=== PATIENT | female | born 1950 | race African-American/Black ===

== ENCOUNTER 2021-11-13 09:07 | Outpatient (REF) | payer MEDICARE, OTHER, SELFPAY ==
[2021-11-13 09:38] LABS: MANUAL DIFF FLAG NO
[2021-11-13 09:46] LABS: Basophils Percent Auto 0.4 % (0-2); Eosinophils Absolute Auto 0.1 X10*3/uL (0.0-0.4); Eosinophils Percent Auto 1.6 % (0-4); Hematocrit 38.3 % (37.0-47.0); Hemoglobin 12.2 g/dl (12.0-16.0); Imm Gran Abs Auto 0.02 X10*3/uL (0.00-0.03); Imm Gran Pct Auto 0.3 % (0.0-0.4); Lymphocytes Absolute Auto 2.2 X10*3/uL (1.2-4.9); Lymphocytes Percent Auto 31.5 % (20-40); Mean Corpuscular HGB Conc 31.9 g/dl (31.0-35.0); Mean Corpuscular Hemoglobin 26.9 pg (27.0-33.0); Mean Corpuscular Volume 84.4 fL (80.0-98.0); Mean Platelet Volume 10.1 fL (9.4-12.3); Monocytes Absolute Auto 0.7 X10*3/uL (0.1-1.2); Monocytes Percent Auto 9.2 % (2-11); Platelet Count 312 X10*3/uL (160-400); Red Blood Count 4.54 X10*6/uL (4.20-5.50); Red Cell Distribution Width 15.1 % (11.0-16.0); White Blood Count 7.1 X10*3/uL (4.8-10.8)
[2021-11-13 10:21] LABS: Alanine Aminotransferase 26 U/L (0-31); Alkaline Phosphatase 90 U/L (39-117); Anion Gap 8 (12-20); Aspartate Amino Transferase 25 U/L (5-31); Bilirubin Total 0.4 mg/dL (0.0-1.0); Blood Urea Nitrogen 19 mg/dL (9-16); Calcium 9.8 mg/dL (8.4-10.2); Carbon Dioxide 30 mmol/L (22-29); Chloride 105 mmol/L (96-108); Cholesterol 186 mg/dL; Estimated Glomerular Filt Rate 50; Glucose Random 106 mg/dL (60-115); HDL Cholesterol 68 mg/dL; LDL Cholesterol Calculated 108 mg/dl; Potassium 4.3 mmol/L (3.3-5.1); Sodium 139 mmol/L (135-145); Total Protein 6.9 g/dL (6.5-8.0); Triglycerides 51 mg/dL
[2021-11-13 10:43] LABS: Thyroid Stimulating Hormone 0.62 uIU/mL (0.32-4.0)
== END 2021-11-13 09:08 | disposition home or self-care (01) ==
LOC: HO.LAB 09:07
PROVIDERS: PCP Internal Medicine; Visit Provider Internal Medicine
DX: F17.211 Nicotine dependence, cigarettes, in remission (principal); I10 Essential (primary) hypertension; J37.0 Chronic laryngitis; R05.9 Cough, unspecified; R09.82 Postnasal drip
CPT/HCPCS: 36415; 80053; 80061; 84443; 85025

== ENCOUNTER 2022-02-01 11:37 | Outpatient (REF) | payer MEDICARE, OTHER, SELFPAY ==
[2022-02-02 04:43] LABS: ~Hepatitis C Antibody Nonreactive (Nonreactive)
== END 2022-02-01 11:38 | disposition home or self-care (01) ==
LOC: HO.10HDL 11:37
PROVIDERS: Visit Provider Internal Medicine
DX: M62.831 Muscle spasm of calf (principal); F17.201 Nicotine dependence, unspecified, in remission
CPT/HCPCS: 36415; 86803

== ENCOUNTER 2022-11-25 13:51 | Outpatient (REF) | payer MEDICARE, OTHER, SELFPAY ==
[2022-11-25 14:20] LABS: MANUAL DIFF FLAG NO
[2022-11-25 15:55] LABS: Basophils Percent Auto 0.5 % (0-2); Eosinophils Absolute Auto 0.2 X10*3/uL (0.0-0.4); Eosinophils Percent Auto 2.9 % (0-4); Hematocrit 34.2 % (37.0-47.0); Hemoglobin 10.8 g/dl (12.0-16.0); Imm Gran Abs Auto 0.02 X10*3/uL (0.00-0.03); Imm Gran Pct Auto 0.3 % (0.0-0.4); Lymphocytes Absolute Auto 3.1 X10*3/uL (1.2-4.9); Lymphocytes Percent Auto 38.8 % (20-40); Mean Corpuscular HGB Conc 31.6 g/dl (31.0-35.0); Mean Corpuscular Hemoglobin 25.8 pg (27.0-33.0); Mean Corpuscular Volume 81.8 fL (80.0-98.0); Mean Platelet Volume 10.7 fL (9.4-12.3); Monocytes Absolute Auto 0.6 X10*3/uL (0.1-1.2); Neutrophils Percent Auto 49.5 % (45-73); Platelet Count 352 X10*3/uL (160-400); Red Blood Count 4.18 X10*6/uL (4.20-5.50); Red Cell Distribution Width 14.7 % (11.0-16.0)
[2022-11-25 16:34] LABS: Alanine Aminotransferase 17 U/L (0-31); Albumin Level 3.8 g/dL (3.5-5.0); Alkaline Phosphatase 72 U/L (39-117); Anion Gap 12 (12-20); Aspartate Amino Transferase 21 U/L (5-31); Bilirubin Total 0.5 mg/dL (0.0-1.0); Blood Urea Nitrogen 12 mg/dL (9-16); Calcium 9.1 mg/dL (8.4-10.2); Carbon Dioxide 25 mmol/L (22-29); Chloride 109 mmol/L (96-108); Cholesterol 182 mg/dL; Estimated Glomerular Filt Rate 53; Glucose Random 75 mg/dL (60-115); HDL Cholesterol 59 mg/dL; LDL Cholesterol Calculated 114 mg/dl; Potassium 4.1 mmol/L (3.3-5.1); Sodium 142 mmol/L (135-145); Total Protein 6.4 g/dL (6.5-8.0); Triglycerides 47 mg/dL
[2022-11-25 16:48] LABS: Vitamin D 25-OH Total 55.9 ng/mL (>30)
[2022-11-26 08:45] LABS: ~HepC Num1 0.15 S/CO (0.00-0.79); ~Hepatitis C Antibody Nonreactive (Nonreactive)
== END 2022-11-25 13:52 | disposition home or self-care (01) ==
LOC: HO.LAB 13:51
PROVIDERS: PCP Internal Medicine; Visit Provider Internal Medicine
DX: Z13.89 Encounter for screening for other disorder (principal)
CPT/HCPCS: 36415; 80053; 80061; 82306; 85025; 86803

== ENCOUNTER 2023-01-03 16:31 | Outpatient (REF) | payer MEDICARE, OTHER, SELFPAY ==
[2023-01-03 16:50] LABS: MANUAL DIFF FLAG NO
[2023-01-03 17:55] LABS: Basophils Absolute Auto 0.1 X10*3/uL (0.0-0.2); Basophils Percent Auto 0.7 % (0-2); Eosinophils Absolute Auto 0.2 X10*3/uL (0.0-0.4); Eosinophils Percent Auto 2.4 % (0-4); Hematocrit 36.7 % (37.0-47.0); Hemoglobin 11.4 g/dl (12.0-16.0); Imm Gran Abs Auto 0.01 X10*3/uL (0.00-0.03); Imm Gran Pct Auto 0.1 % (0.0-0.4); Lymphocytes Percent Auto 29.8 % (20-40); Mean Corpuscular HGB Conc 31.1 g/dl (31.0-35.0); Mean Corpuscular Hemoglobin 25.9 pg (27.0-33.0); Mean Corpuscular Volume 83.2 fL (80.0-98.0); Mean Platelet Volume 10.7 fL (9.4-12.3); Monocytes Absolute Auto 0.6 X10*3/uL (0.1-1.2); Monocytes Percent Auto 8.9 % (2-11); Neutrophils Absolute Auto 3.9 x10*3/uL (2.0-8.3); Neutrophils Percent Auto 58.1 % (45-73); Platelet Count 405 X10*3/uL (160-400); Red Blood Count 4.41 X10*6/uL (4.20-5.50); Red Cell Distribution Width 15.1 % (11.0-16.0); White Blood Count 6.7 X10*3/uL (4.8-10.8)
[2023-01-03 18:30] LABS: Alanine Aminotransferase 19 U/L (0-31); Albumin Level 3.6 g/dL (3.5-5.0); Alkaline Phosphatase 74 U/L (39-117); Anion Gap 11 (12-20); Aspartate Amino Transferase 21 U/L (5-31); Bilirubin Total 0.5 mg/dL (0.0-1.0); Blood Urea Nitrogen 10 mg/dL (9-16); Calcium 9.5 mg/dL (8.4-10.2); Carbon Dioxide 26 mmol/L (22-29); Chloride 109 mmol/L (96-108); Estimated Glomerular Filt Rate 55; Glucose Random 86 mg/dL (60-115); Potassium 4.4 mmol/L (3.3-5.1); Sodium 142 mmol/L (135-145); Total Protein 6.9 g/dL (6.5-8.0)
[2023-01-03 18:56] LABS: Ferritin 18 ng/mL (10-250); Vitamin B12 416 pg/mL (200-900)
== END 2023-01-03 16:32 | disposition home or self-care (01) ==
LOC: HO.LAB 16:31
PROVIDERS: PCP Internal Medicine; Visit Provider Internal Medicine
DX: D64.9 Anemia, unspecified (principal); I10 Essential (primary) hypertension; K21.9 Gastro-esophageal reflux disease without esophagitis; F17.211 Nicotine dependence, cigarettes, in remission
CPT/HCPCS: 36415; 80053; 82607; 82728; 85025

== ENCOUNTER 2023-12-20 10:06 | Outpatient (REF) | payer MEDICARE, OTHER, SELFPAY ==
[2023-12-20 10:19] LABS: MANUAL DIFF FLAG NO
[2023-12-20 10:28] LABS: Basophils Absolute Auto 0.1 X10*3/uL (0.0-0.2); Basophils Percent Auto 0.7 % (0-2); Eosinophils Absolute Auto 0.1 X10*3/uL (0.0-0.4); Eosinophils Percent Auto 1.7 % (0-4); Hematocrit 35.9 % (37.0-47.0); Hemoglobin 11.7 g/dl (12.0-16.0); Imm Gran Abs Auto 0.01 X10*3/uL (0.00-0.03); Imm Gran Pct Auto 0.1 % (0.0-0.4); Lymphocytes Absolute Auto 2.4 X10*3/uL (1.2-4.9); Mean Corpuscular HGB Conc 32.6 g/dl (31.0-35.0); Mean Corpuscular Hemoglobin 26.2 pg (27.0-33.0); Mean Corpuscular Volume 80.5 fL (80.0-98.0); Mean Platelet Volume 9.9 fL (9.4-12.3); Monocytes Absolute Auto 0.6 X10*3/uL (0.1-1.2); Monocytes Percent Auto 8.2 % (2-11); Neutrophils Percent Auto 56.3 % (45-73); Platelet Count 322 X10*3/uL (160-400); Red Blood Count 4.46 X10*6/uL (4.20-5.50); Red Cell Distribution Width 15.8 % (11.0-16.0); White Blood Count 7.2 X10*3/uL (4.8-10.8)
[2023-12-20 11:09] LABS: Alanine Aminotransferase 27 U/L (0-31); Albumin Level 3.6 g/dL (3.5-5.0); Alkaline Phosphatase 66 U/L (39-117); Anion Gap 11 (12-20); Aspartate Amino Transferase 26 U/L (5-31); Bilirubin Total 0.7 mg/dL (0.0-1.0); Blood Urea Nitrogen 14 mg/dL (9-16); Calcium 9.5 mg/dL (8.4-10.2); Carbon Dioxide 26 mmol/L (22-29); Chloride 110 mmol/L (96-108); Cholesterol 170 mg/dL (<200); Estimated Glomerular Filt Rate 48; Glucose Random 101 mg/dL (60-115); HDL Cholesterol 63 mg/dL (>40); LDL Cholesterol Calculated 94 mg/dL (<100); Potassium 3.9 mmol/L (3.3-5.1); Sodium 143 mmol/L (135-145); Total Protein 6.7 g/dL (6.5-8.0); Triglycerides 68 mg/dL (<150)
== END 2023-12-20 10:07 | disposition home or self-care (01) ==
LOC: HO.LAB 10:06
PROVIDERS: PCP Internal Medicine; Visit Provider Internal Medicine
DX: F17.201 Nicotine dependence, unspecified, in remission (principal); I10 Essential (primary) hypertension; M25.511 Pain in right shoulder; Z86.010 Personal history of colon polyps
CPT/HCPCS: 36415; 80053; 80061; 85025

== ENCOUNTER 2024-11-13 14:15 | Outpatient (REF) | payer MEDICARE, OTHER, SELFPAY ==
[2024-11-13 14:25] LABS: MANUAL DIFF FLAG NO
[2024-11-13 15:28] LABS: Basophils Absolute Auto 0.1 X10*3/uL (0.0-0.2); Basophils Percent Auto 0.6 % (0-2); Eosinophils Absolute Auto 0.2 X10*3/uL (0.0-0.4); Eosinophils Percent Auto 2.3 % (0-4); Hematocrit 36.9 % (37.0-47.0); Hemoglobin 11.6 g/dl (12.0-16.0); Imm Gran Abs Auto 0.02 X10*3/uL (0.00-0.03); Imm Gran Pct Auto 0.3 % (0.0-0.4); Lymphocytes Absolute Auto 2.6 X10*3/uL (1.2-4.9); Lymphocytes Percent Auto 33.5 % (20-40); Mean Corpuscular HGB Conc 31.4 g/dl (31.0-35.0); Mean Corpuscular Hemoglobin 25.7 pg (27.0-33.0); Mean Corpuscular Volume 81.8 fL (80.0-98.0); Mean Platelet Volume 10.6 fL (9.4-12.3); Monocytes Absolute Auto 0.7 X10*3/uL (0.1-1.2); Monocytes Percent Auto 8.8 % (2-11); Neutrophils Absolute Auto 4.3 x10*3/uL (2.0-8.3); Neutrophils Percent Auto 54.5 % (45-73); Platelet Count 313 X10*3/uL (160-400); Red Blood Count 4.51 X10*6/uL (4.20-5.50); Red Cell Distribution Width 16.5 % (11.0-16.0); White Blood Count 7.8 X10*3/uL (4.8-10.8)
[2024-11-13 17:37] LABS: Alanine Aminotransferase 22 U/L (0-31); Albumin Level 3.8 g/dL (3.5-5.0); Alkaline Phosphatase 83 U/L (39-117); Anion Gap 8 (12-20); Aspartate Amino Transferase 24 U/L (5-31); Bilirubin Total 0.5 mg/dL (0.0-1.0); Blood Urea Nitrogen 12 mg/dL (9-16); Calcium 9.3 mg/dL (8.4-10.2); Carbon Dioxide 28 mmol/L (22-29); Chloride 109 mmol/L (96-108); Cholesterol 172 mg/dL (<200); Estimated Glomerular Filt Rate 59; Glucose Random 89 mg/dL (60-115); HDL Cholesterol 68 mg/dL (>40); LDL Cholesterol Calculated 94 mg/dL (<100); Potassium 4.2 mmol/L (3.3-5.1); Sodium 141 mmol/L (135-145); Total Protein 6.8 g/dL (6.5-8.0); Triglycerides 52 mg/dL (<150)
== END 2024-11-13 14:16 | disposition home or self-care (01) ==
LOC: HO.LAB 14:15
PROVIDERS: PCP Internal Medicine; Visit Provider Internal Medicine
DX: B35.1 Tinea unguium (principal); I10 Essential (primary) hypertension; L84 Corns and callosities; M20.12 Hallux valgus (acquired), left foot
CPT/HCPCS: 36415; 80053; 80061; 85025

== ENCOUNTER 2025-01-15 13:38 | Outpatient (REF) | payer MEDICARE, OTHER, SELFPAY ==
[2025-01-15 14:59] LABS: Appearance Urine Clear; Color Urine Yellow; Glucose Urine UA Negative (Negative); Leukocyte Esterase Urine Small (1+) (Negative); Nitrite Urine Negative (Negative); PH 5.5 (5.0-9.0); UMIC TRIGGER UA YES; Urine Blood Negative (Negative); Urine Ketones Negative (Negative); Urine Protein Negative (Neg-Trace)
[2025-01-15 15:01] LABS: Bacteria Urine None Seen (None Seen); Hyaline Casts Urine 0-2 /LPF (0-2); RBC Urine 0-2 /HPF (0-2); Squamous Epithelial Cell Urine 0-2 /HPF (0-2)
--- OUTSIDE RECORDS SUMMARY | 2025-01-15 15:19 | XMS_ITS | Clinical Summary ---
Author Organization [facility] Address [address] [place] [address] Phone Care Team Providers Care Sales Representative Metals Name Role Phone Renetta Nance MD Primary Care Provider [phone] Allergies Active Allergy Reactions Criticality Noted Date Comments Cat Dander High 12/27/2024 Pollen Extracts High 12/27/2024 Environmental Medications acetaminophen (TYLENOL 8 HOUR) 650 mg 8 hr tablet Take 1 tablet (650 mg total) by mouth every 8 (eight) hours if needed for mild pain. Do not crush, chew, or split. Active raloxifene (EVISTA) 60 mg tablet Take 1 tablet (60 mg total) by mouth 1 (one) time each day. Active estradioL (Yuvafem) 10 mcg tablet vaginal tablet Insert 1 tablet (10 mcg total) into the vagina. Active cetirizine (ZyrTEC) 10 mg tablet Take 1 tablet (10 mg total) by mouth 1 (one) time each day. Active pantoprazole (PROTONIX) 40 mg EC tablet Take 1 tablet (40 mg total) by mouth 1 (one) time each day before breakfast. Do not crush, chew, or split. Active montelukast (SINGULAIR) 10 mg tablet Take 1 tablet (10 mg total) by mouth 1 (one) time each day. 5 Active sodium,potassiu m,mag sulfates (Suprep Bowel Prep Kit) 17.5-3.13-1.6 gram recon soln bowel prep kit oral solution Take 177ML by mouth for 2 doses. SEE INSTRUCTIONS PROVIDED BY OFFICE. 1 kit 5 Active Active Problems Problem Noted Date Diagnosed Date Gastroesophageal reflux disease without esophagi tis 01/01/2025 Family history of colon cancer in mother 025 History of colon polyps 01/01/2025 Encounters Date Type Department Care Team Description 01/08/2025 2:54 PM EDT Anesthesia Event [facility] [address] [place] [phone] Fab Yates MD 01/08/2025 1:43 PM EDT - 01/08/2025 11:59 PM EDT Hospital Encounter [facility] [address] [place] [phone] Jesús Head MD Millay, Julia, CRNA Gomes, Sheldon B, MD Family history of colon cancer in mother; Gastroesophageal reflux disease without esophagitis; Heartburn Discharge Disposition: Home or Self Care 01/01/2025 8:40 AM EDT Consult Gastroenterology - [place] 175 [facility] [address] [phone] Jesús Head MD Gastroesophageal reflux disease without esophagitis (Primary Dx); Family history of colon cancer in mother 12/06/2024 Telephone Gastroenterology - [place] 175 [facility] [address] [phone] Miguel Angel Alex MD appointment from Last 3 Months Surgical History Surgery Date Site/Laterality Comments COLONOSCOPY Medical History Medical History Date Comments GERD (gastroesophageal reflux disease) Family History Medical History Relation Name Comments Colon cancer Mother Relation Name Status Comments Mother Social History Tobacco Use Types Packs/Day Years Used Date Smoking Tobacco: Never Smokeless Tobacco: Never Tobacco Cessation:Counseling Given: Not Answered Interpersonal Safety Answer Date Record ed Physical Abuse 01/08/2025 Verbal Abuse 01/08/2025 Comments No Sex and Gender Information Value Date Recorded Sex Assigned at Not on file Legal Sex Female 12:08 PM EST Gender Identity Not on file Sexual Orientation Not on file Obstetrics History Last Filed Vital Signs Vital Sign Reading Time Taken Comments Blood Pressure 109/72 01/08/2025 3:39 PM EDT Pulse 68 01/08/2025 3:39 PM EDT Temperature 36.7 ??C (98.1 ??F) 01/08/2025 3:19 PM ED T Respiratory Rate 16 01/08/2025 3:39 PM EDT Oxygen Saturation 100% 01/08/2025 3:39 PM EDT Inhaled Oxygen Concentration - - Weight 72.1 kg (159 lb) 01/08/2025 2:31 PM EDT Height 160 cm (5' 3 ) 01/08/2025 2:31 PM EDT Body Mass Index 28.17 01/08/2025 2:31 PM EDT Plan of Treatment Health Maintenance Due Date Last Done Comments Breast Cancer Screening 1950 Zoster Vaccines (1 of 2) 2000 Depression Screening 07/13/2022 Hepatitis C Screening 07/13/2022 Medicare Annual Wellness Visit 07/13/2022 Osteoporosis Screening (Bone Density Screening) 07/13/2022 Social Influencers of Health Screening 07/13/2022 COVID-19 Vaccine ( season) 2024 07/22/2022, 12/03/2021, 06/30/2021, Additional history exists Cholesterol Screening (Lipid Panel) 12/17/2025 12/17/2020 Falls Risk Assessment 01/08/2026 01/08/2025 DTaP,Tdap,and Td Vaccines (2 - Td or Tdap) 12/06/2034 12/06/2024 Colorectal Cancer Screening: Colonoscopy 01/08/2035 01/08/2025 Influenza Vaccine Completed 04/25/2024, , 04/22/2021, Additional history exists Pneumococcal Vaccine: 50+ Years Completed 12/06/2024 RSV Immunization Adult Patients Completed 12/06/2024 HIB Vaccines Aged Out No longer eligi ble based on patient's age to complete this topic HPV Vaccines Aged Out No longer eligi ble based on patient's age to complete this topic Hepatitis A Vaccines Aged Out No long er eligible based on patient's age to complete this topic Hepatitis B Vaccines Aged Out No long er eligible based on patient's age to complete this topic IPV Vaccines Aged Out No longer eligi ble based on patient's age to complete this topic MMR Vaccines Aged Out No longer eligi ble based on patient's age to complete this topic Meningococcal ACWY Vaccine Aged Out N o longer eligible based on patient's age to complete this topic Meningococcal B Vaccine Aged Out No l onger eligible based on patient's age to complete this topic RSV Immunization Patients Under 20 months Aged Out No longer eligible based on patient's age to complete this topic Varicella Vaccines Aged Out No longer eligible based on patient's age to complete this topic Procedures Procedure Name Priority Date/Time Associated Diagnosis Comments COLONOSCOPY Routine 01/08/2025 3:18 PM EDT Family history of colon cancer in mother Gastroesophageal reflux disease without esophagitis Heartburn EGD Routine 01/08/2025 3:18 PM EDT Family history of colon cancer in mother Gastroesophageal reflux disease without esophagitis Heartburn from Last 3 Months Results * COLONOSCOPY Anesthesia - MAC; [facility] ENDOSCOPY (01/08/2025 3:18 PM EDT) Anatomical Region Laterality Modality Other 01/08/2025 3:06 PM EDT Impressions 01/08/2025 3:22 PM EDT - Internal hemorrhoids. ? - Diverticulosis in the entire examined colon. ? - No specimens collected. Recommendation: ?- Repeat colonoscopy in 2 months for surveillance. ? - Use fiber, for example Citrucel, Fibercon, Konsyl or ? Metamucil. ? - Repeat colonoscopy in 5 years for surveillance. Narrative 01/08/2025 3:22 PM EDT [facility] GI Patient Name: Janett Jaime Procedure Date: 01/08/2025 3:06 PM Date of : 1950 Age: 74 Gender: Female Note Status: Finalized Attending MD: Jesús Head MD, Procedure Date No Time: 01/08/2025 Procedure: ? Colonoscopy Indications: ? High risk colon cancer surveillance: Personal history ? of colonic polyps Providers: ? Jesús Head MD Referring MD: ?Jesús Head MD Medicines: ? Propofol per Anesthesia Complications: ? No immediate complications. Estimated Blood Loss: ? Estimated blood loss: none. Procedure: ? Pre-Anesthesia Assessment: ? - ASA Grade Assessment: II - A patient with mild ? systemic disease. ? After I obtained informed consent, the scope was ? passed under direct vision. Throughout the procedure, ? the patient's blood pressure, pulse, and oxygen ? saturations were monitored continuously.The Olympus ? Pediatric Colonoscope was introduced through the anus ? and advanced to the cecum, identified by appendiceal ? orifice and ileocecal valve. The colonoscopy was ? performed without difficulty. The patient tolerated ? the procedure well. The quality of the bowel ? preparation was adequate. Findings: ?The perianal and digital rectal examinations were ? normal. ? Internal hemorrhoids were found during retroflexion. ? The hemorrhoids were Grade I (internal hemorrhoids ? that do not prolapse). ? Scattered diverticula were found in the entire colon. Procedure Code(s): ? --- Professional --- ? G0105, Colorectal cancer screening; colonoscopy on ? individual at high risk Diagnosis Code(s): ? --- Professional --- ? Z86.010, Personal history of colonic polyps ? K64.0, First degree hemorrhoids ? K57.30, Diverticulosis of large intestine without ? perforation or abscess without bleeding CPT copyright 2020 [employer]. All rights reserved. The codes documented in this report are preliminary and upon environmental test technician review may be revised to meet current compliance requirements. Jesús Head MD 01/08/2025 3:22:22 PM This report has been signed electronically.Jesús Head MD Number of Addenda: 0 Note Initiated On: 01/08/2025 3:06 PM Scope In: Scope Out: ? Endoscopy Department at [facility] - [address] [place] [address], ? [place] [address] Procedure Note Jesús Head MD - 01/08/2025 [facility] GI Patient Name: Janett Jaime Procedure Date: 01/08/2025 3:06 PM Date of : 1950 Age: 74 Gender: Female Note Status: Finalized Attending MD: Jesús Head MD, Procedure Date No Time: 01/08/2025 Procedure: Colonoscopy Indications: High risk colon cancer surveillance: Personalhistory of colonic polyps Providers: Jesús Head MD Referring MD: Jesús Head MD Medicines: Propofol per Anesthesia Complications: No immediate complications. Estimated Blood Loss: Estimated blood loss: none. Procedure: Pre-Anesthesia Assessment: - ASA Grade Assessment: II - A patient with mild systemic disease. After I obtained informed consent, the scope was passed under direct vision. Throughout theprocedure, the patient's blood pressure, pulse, and oxygen saturations were monitored continuously.The Olympus Pediatric Colonoscope was introduced through theanus and advanced to the cecum, identified byappendiceal orifice and ileocecal valve. The colonoscopy was performed without difficulty. The patient tolerated the procedure well. The quality of the bowel preparation was adequate. Findings: The perianal and digital rectal examinations were normal. Internal hemorrhoids were found duringretroflexion. The hemorrhoids were Grade I (internal hemorrhoids that do not prolapse). Scattered diverticula were found in the entirecolon. Procedure Code(s): --- Professional --- G0105, Colorectal cancer screening; colonoscopy on individual at high risk Diagnosis Code(s): --- Professional --- Z86.010, Personal history of colonic polyps K64.0, First degree hemorrhoids K57.30, Diverticulosis of large intestine without perforation or abscess without bleeding CPT copyright 2020 [employer]. All rights reserved. The codes documented in this report are preliminary and upon environmental test technician reviewmay be revised to meet current compliance requirements. Jesús Head MD 01/08/2025 3:22:22 PM This report has been signed electronically.Jesús Head MD Number of Addenda: 0 Note Initiated On: 01/08/2025 3:06 PM Scope In: Scope Out: Endoscopy Department at [facility] - [address] [place] [phone] IMPRESSION: - Internal hemorrhoids. - Diverticulosis in the entire examined colon. - No specimens collected. Recommendation: - Repeat colonoscopy in 2 months forsurveillance. - Use fiber, for example Citrucel, Fibercon, Konsylor Metamucil. - Repeat colonoscopy in 5 years for surveillance. us Jesús Head MD GI~PROCEDURE ORDERABLES Final Re sult * EGD Anesthesia - MAC; [facility] ENDOSCOPY (01/08/2025 3:18 PM EDT) Anatomical Region Laterality Modality Other 01/08/2025 2:49 PM EDT Impressions 01/08/2025 3:06 PM EDT - Small hiatal hernia. ? - No specimens collected. Recommendation: ?- Observe patient's clinical course. Narrative 01/08/2025 3:06 PM EDT [facility] Patient Name: Janett Jaime Procedure Date: 01/08/2025 2:49 PM Date of : 1950 Age: 74 Gender: Female Note Status: Finalized Attending MD: Jesús Head MD, Procedure Date No Time: 01/08/2025 Procedure: ? Upper GI endoscopy Indications: ? Heartburn Providers: ? Jesús Head MD Referring MD: ?Jesús Head MD Medicines: ? Propofol per Anesthesia Complications: ? No immediate complications. Estimated Blood Loss: ? Estimated blood loss: none. Procedure: ? Pre-Anesthesia Assessment: ? - ASA Grade Assessment: II - A patient with mild ? systemic disease. ? After obtaining informed consent, the endoscope was ? passed under direct vision. Throughout the procedure, ? the patient's blood pressure, pulse, and oxygen ? saturations were monitored continuously.The Olympus ? Gastroscope was introduced through the mouth, and ? advanced to the second part of duodenum. The upper GI ? endoscopy was accomplished without difficulty. The ? patient tolerated the procedure well. Findings: ?A small hiatal hernia was present. Procedure Code(s): ? --- Professional --- ? 75375, Esophagogastroduodenoscopy, flexible, ? transoral; diagnostic, including collection of ? specimen(s) by brushing or washing, when performed ? (separate procedure) Diagnosis Code(s): ? --- Professional --- ? K44.9, Diaphragmatic hernia without obstruction or ? gangrene ? R12, Heartburn CPT copyright 2020 [employer]. All rights reserved. The codes documented in this report are preliminary and upon environmental test technician review may be revised to meet current compliance requirements. Jesús Head MD 01/08/2025 3:05:58 PM This report has been signed electronically.Jesús Head MD Number of Addenda: 0 Note Initiated On: 01/08/2025 2:49 PM Scope In: Scope Out: ? Endoscopy Department at [facility] - [address] [place] [address], ? [place] [phone] Procedure Note Jesús Head MD - 01/08/2025 [facility] GI Patient Name: Janett Jaime Procedure Date: 01/08/2025 2:49 PM Date of : 1950 Age: 74 Gender: Female Note Status: Finalized Attending MD: Jesús Head MD, Procedure Date No Time: 01/08/2025 Procedure: Upper GI endoscopy Indications: Heartburn Providers: Jesús Head MD Referring MD: Jesús Head MD Medicines: Propofol per Anesthesia Complications: No immediate complications. Estimated Blood Loss: Estimated blood loss: none. Procedure: Pre-Anesthesia Assessment: - ASA Grade Assessment: II - A patient with mild systemic disease. After obtaining informed consent, the endoscope was passed under direct vision. Throughout theprocedure, the patient's blood pressure, pulse, and oxygen saturations were monitored continuously.The Olympus Gastroscope was introduced through the mouth, and advanced to the second part of duodenum. The upperGI endoscopy was accomplished without difficulty. The patient tolerated the procedure well. Findings: A small hiatal hernia was present. Procedure Code(s): --- Professional --- 72222, Esophagogastroduodenoscopy, flexible, transoral; diagnostic, including collection of specimen(s) by brushing or washing, when performed (separate procedure) Diagnosis Code(s): --- Professional --- K44.9, Diaphragmatic hernia without obstruction or gangrene R12, Heartburn CPT copyright 2020 [employer]. All rights reserved. The codes documented in this report are preliminary and upon environmental test technician reviewmay be revised to meet current compliance requirements. Jesús Head MD 01/08/2025 3:05:58 PM This report has been signed electronically.Jesús Head MD Number of Addenda: 0 Note Initiated On: 01/08/2025 2:49 PM Scope In: Scope Out: Endoscopy Department at [facility] - [address] [place] [phone] IMPRESSION: - Small hiatal hernia. - No specimens collected. Recommendation: - Observe patient's clinical course. Jesús Head MD GI~PROCEDURE ORDERABLES Final Re sult from Last 3 Months Insurance MEDICARE [facility] Care Teams Sales Representative Metals Relationship Specialty Start Date End Date Renetta Nance MD [address] [place] [address] [place] [phone] PCP - General Internal Medicine 12/06/24
== END 2025-01-15 13:39 | disposition home or self-care (01) ==
LOC: HO.LAB 13:38
PROVIDERS: PCP Internal Medicine; Visit Provider Internal Medicine
DX: J30.89 Other allergic rhinitis (principal); K21.9 Gastro-esophageal reflux disease without esophagitis; N30.00 Acute cystitis without hematuria; R10.30 Lower abdominal pain, unspecified
CPT/HCPCS: 81001; 87086